=== PATIENT | male | born 1960 | race Caucasian/White ===

== ENCOUNTER 2017-05-10 13:12 | Inpatient (IN) | payer MEDICAID ==
[~2017-05-10] VITALS: Ht 177.8 cm; Wt 104.3 kg
[~2017-05-10 13:12] MED LIST: HYDROCHLOROTHIA25 MG GT; MAXALT10 MG PO; NORVASC5 MG PO; PRAVACHOL40 MG PO; ZANTAC150 MG PO; ZIAC; ZIAC 10-6.25 MG1 TAB; ZIAC 2.5/6.25 M1 TAB
[2017-05-10 14:35] LABS: BASOPHILS 0.4 % (0-2); EOSINOPHILS 0.6 % (0-7); HEMATOCRIT 52.5 % (42.0-54.0); HEMOGLOBIN 17.7 g/dL (13.5-17.5); IMMATURE GRANULOCYTES 0.2 % (0-5); LYMPHOCYTES 13.8 % (15-50); MCH 34.1 pg (26.0-34.0); MCHC 33.7 g/dL (31.0-37.0); MCV 101.2 fL (80.0-100.0); MEAN PLATELET VOLUME 9.5 fL (7.4-10.4); MONOCYTES 5.5 % (2-11); NEUTROPHILS 79.5 % (40-80); PLATELET COUNT 236 10x3/uL (130-400); RBC 5.19 10x6/uL (4.20-6.10); RDW 13.8 % (11.5-14.5); WBC 10.7 10x3/uL (4.8-10.8)
[2017-05-10 14:51] LABS: ALBUMIN 3.9 g/dL (3.4-5.0); ANION GAP 13.7 mmol/L (8-16); BILIRUBIN - TOTAL 0.86 mg/dL (0.2-1.3); CALCIUM 10.1 mg/dL (8.5-10.1); CARBON DIOXIDE 28.6 mmol/L (21.0-32.0); CREATININE - SERUM 1.1 mg/dL (0.6-1.3); POTASSIUM - SERUM 5.3 mmol/L (3.5-5.1); PROTEIN - SERUM 7.7 g/dL (6.4-8.2)
--- NOTE | 2017-05-10 18:27 | NUR ---
1800 PT RECIEVED FROM THE ER VIA BED ORALLY INTUBTATED
[2017-05-10] MEDS ORDERED: ULTRAM50 MG PO (18:31)
--- NOTE | 2017-05-10 18:31 | NUR ---
181 DR CARLOS IN WITH PT.. MRI HERE TO TRANSPORT PT.. DR CARLOS TALKING WITH DR VAUGHAN ON THE PHONE RE MRI.. MRI HELD AT THIS TIME AFTER THEIR CONVERSATION.. 1829 MOTHER AT BEDSIDE AND DR CARLOS IS TALKING WITH HER..
[2017-05-10 19:00] VITALS: BP 128/74
--- NOTE | 2017-05-10 19:30 | NUR ---
REPORT RECIEVED. ASSESSMENT COMPLETED. PT SEDATED ON VENT.POSITIONED FOR COMFORT. BED IN LOW POSITION.
--- NOTE | 2017-05-10 19:45 | NUR ---
DR. VAUGHAN CALLED T ORDER FOR PROPOFOL TO BE STOPPED WILL ADM NO FURTHER NO ORDERS AT THIS TIME.
[2017-05-10 20:00] VITALS: BP 128/74
[2017-05-10 20:02] VITALS: BP 127/71; BMI 33.0
--- NOTE | 2017-05-10 20:15 | NUR ---
DR. VAUGHAN AT BED SIDE TO ASSESS PT. AFTER ASSESSMENT COMPLETED ORDERED THE PROPOFOL TO BED CONTINUED.
[2017-05-10 21:00] VITALS: BP 104/63
--- NOTE | 2017-05-10 21:00 | NUR ---
PT FAMILY AT BED SIDE UPDATE GIVE TO BOTH OF HIS BROTHERS. PT SEDATED ON VENT ORAL CARE GIVEN POSITIONED FOR COMFORT.
[2017-05-10 21:44] LABS: CKMB 2.6 U/L (0.0-3.6); CREATINE KINASE 204 UL (21-232); T4 THYROXIN - FREE 0.99 ng/dL (0.76-1.46); THYROID STIMULATING HORMONE 1.18 uIU/mL (0.36-3.74); TROPONIN-I 0.047 ng/mL (0.000-0.060)
[2017-05-10 22:00] VITALS: BP 125/74
[2017-05-10 23:00] VITALS: BP 129/71
--- NOTE | 2017-05-10 23:00 | NUR ---
REASSESSMENT COMPLETED. PT SEDATED ON VENT ORAL CARE GIVEN. POSITIONED FOR COMFORT.
[2017-05-11] VITALS (23 sets, daily range): BP systolic 98–159; BP diastolic 57–96; Ht 177.8 cm; Wt 104.3 kg
--- NOTE | 2017-05-11 01:00 | NUR ---
PT SEDATE ON VENT ORAL CARE GIVEN. POSITIONED FOR COMFORT. WILL CONTINUE TO MONITOR.
--- NOTE | 2017-05-11 03:00 | NUR ---
REASSESSMENT COMPLETED. PT SEDATED ON THE VENT WILL CONTINUE TO MONITOR.
[2017-05-11 04:44] LABS: APPEARANCE HAZY (CLEAR); BILIRUBIN NEGATIVE (NEGATIVE); COLOR YELLOW (YELLOW); GLUCOSE NEGATIVE (NEGATIVE); KETONE NEGATIVE (NEGATIVE); LEUKOCYTE ESTERASE 1+ (NEGATIVE); NITRITE NEGATIVE (NEGATIVE); PROTEIN 1+ mg/dL (NEGATIVE); SPECIFIC GRAVITY 1.015 (1.005-1.020); UROBILINOGEN NORMAL (NORMAL)
[2017-05-11 04:45] LABS: BACTERIA FEW /hpf (NONE SEEN); EPITHELIAL CELLS 0-5 /hpf (0-5); WHITE CELLS - URINE 0-5 /hpf (0-5)
--- NOTE | 2017-05-11 05:00 | NUR ---
PT SEDDATED ON VENT ORAL CARE DONE. POSITIONED FOR COMFORT WILL CONTINUE TO MONITOR.
--- NOTE | 2017-05-11 05:05 | NUR ---
REASSESSMENT COMPLETED. PT SEDATED ON VENT RESTING COMFORTABLY. WILL CONTINUE TO MONITOR.
[2017-05-11 05:06] LABS: BASOPHILS 0.1 % (0-2); EOSINOPHILS 0.4 % (0-7); HEMATOCRIT 47.8 % (42.0-54.0); HEMOGLOBIN 16.3 g/dL (13.5-17.5); IMMATURE GRANULOCYTES 0.2 % (0-5); LYMPHOCYTES 14.3 % (15-50); MCH 33.9 pg (26.0-34.0); MCHC 34.1 g/dL (31.0-37.0); MCV 99.4 fL (80.0-100.0); MEAN PLATELET VOLUME 10.2 fL (7.4-10.4); MONOCYTES 8.7 % (2-11); NEUTROPHILS 76.3 % (40-80); PLATELET COUNT 260 10x3/uL (130-400); RBC 4.81 10x6/uL (4.20-6.10); RDW 13.8 % (11.5-14.5); WBC 11.1 10x3/uL (4.8-10.8)
[2017-05-11 05:31] LABS: ALBUMIN 3.3 g/dL (3.4-5.0); ALKALINE PHOSPHATASE 45 U/L (46-116); ALT (SGPT) 39 U/L (10-68); CALC OSMOLALITY 280 mosm/kg (275-300); CALCIUM 9.1 mg/dL (8.5-10.1); CARBON DIOXIDE 24.4 mmol/L (21.0-32.0); CHLORIDE - SERUM 104 mmol/L (98-107); GLUCOSE 110 mg/dL (74-106); MAGNESIUM - SERUM 1.5 mg/dL (1.8-2.4); PHOSPHOROUS 2.4 mg/dL (2.5-4.9); SODIUM 140 mmol/L (136-145); TROPONIN-I 0.053 ng/mL (0.000-0.060); UREA NITROGEN 14 mg/dL (7-18); eGFR NON AFRICAN AMERICAN 82 mL/min (90-120)
[2017-05-11 05:32] LABS: POTASSIUM - SERUM 3.6 mmol/L (3.5-5.1)
--- NOTE | 2017-05-11 07:00 | NUR ---
SHIFT ASSESSMENT COMPLETED, PT SEDATED ON VENT, UYB104% RATE OF 12, PROPOFOL 70MCG VIA PIV TO LEFT FORARM, TUBING CHANGED, CATHETER DRAINING CLEAR YELLOW URINE, VSS, REPOSITIONED, NO SIGNS OF PAIN WILL CONTINUE TO MONITOR
--- NOTE | 2017-05-11 09:00 | NUR ---
PT CONTINUES SEDATED ON VENT, VSS, REPOSITIONED, ORAL CARE AND SUCTIONING PROVIDED, LINEN CHANGED, WILL CONTINUE TO MONITOR
--- NOTE | 2017-05-11 11:00 | NUR ---
PT MAURICE NUES SEDATED ON VENT, ATTEMPTING TO WEAN PER DR ANDERSON, VSS, NO AGITATION NOTED AT THIS TIME, REPOSITIONED, SUCTIONING PROVIDED, BATH AND LINEN CHANGE PROVIDED, WILL CONTIUE TO MONITOR
--- NOTE | 2017-05-11 11:48 | NUR ---
PT EXTUBATED, VSS, O2 4L NC, ALERT, WILL CONTINUE TO MONITOR
--- NOTE | 2017-05-11 13:00 | NUR ---
PT ALERT, RESPIRATIONS EVEN AND UNLABORED, CONTIUES ON O2 VIA NC, NONPRODUCTIVE COUGH NOTED, DR VAUGHAN AWARE OF EXTUBATION, MRI AND TORADOL ORDERED FOR HEADACHE, VSS, WILL CONTINUE TO MONITOR
--- NOTE | 2017-05-11 15:00 | NUR ---
PT ALERT, ABLE TO VERBALIZE NEEDS, NO NEEDS NOTED VSS WILL CONTINUE TO MONITOR
--- NOTE | 2017-05-11 17:00 | NUR ---
PT ALERT, DENIES PAIN, MRI COMPLETE, REPOSITIONED IN BED, NO NEEDS NOTED WILL CONTINUE TO MONITOR
--- NOTE | 2017-05-11 19:30 | NUR ---
REPORT RECEIVED. ASSESSMENT COMPLETED. PT AWAKE AND ORIENTATED. WILL CONTINUE TO MONITOR.
--- NOTE | 2017-05-11 21:00 | NUR ---
FAMILY AT BED SIDE WITH PT. WILL CONTINUE TO MONITOR.
--- NOTE | 2017-05-11 23:00 | NUR ---
REASSESSMENT COMPLETED. PT POSITIONED F0R COMFORT AND BACK TO SLEEP.
[2017-05-12] VITALS (10 sets, daily range): BP systolic 150–162; BP diastolic 85–100
--- NOTE | 2017-05-12 01:00 | NUR ---
PT SLEEPING WITH EYES SHUT WILL CONTINUE TO MONITOR.
--- NOTE | 2017-05-12 03:00 | NUR ---
REASSESSMENT COMPLETED. PT STATED"HE WAS GOING BACK TO SLEEP." WILL CONTINUE TO MONITOR.
[2017-05-12 04:26] LABS: BASOPHILS 0.1 % (0-2); EOSINOPHILS 0.9 % (0-7); HEMATOCRIT 46.9 % (42.0-54.0); HEMOGLOBIN 15.6 g/dL (13.5-17.5); LYMPHOCYTES 19.6 % (15-50); MCH 33.9 pg (26.0-34.0); MCHC 33.3 g/dL (31.0-37.0); MEAN PLATELET VOLUME 10.3 fL (7.4-10.4); MONOCYTES 10.2 % (2-11); NEUTROPHILS 69.2 % (40-80); PLATELET COUNT 246 10x3/uL (130-400); RDW 14.6 % (11.5-14.5); WBC 8.7 10x3/uL (4.8-10.8)
[2017-05-12 04:41] LABS: CALC OSMOLALITY 285 mosm/kg (275-300); CALCIUM 9.5 mg/dL (8.5-10.1); CARBON DIOXIDE 26.1 mmol/L (21.0-32.0); CHLORIDE - SERUM 108 mmol/L (98-107); GLUCOSE 94 mg/dL (74-106); MAGNESIUM - SERUM 1.8 mg/dL (1.8-2.4); PHOSPHOROUS 2.9 mg/dL (2.5-4.9); POTASSIUM - SERUM 3.6 mmol/L (3.5-5.1); SODIUM 143 mmol/L (136-145); UREA NITROGEN 14 mg/dL (7-18); eGFR NON AFRICAN AMERICAN 82 mL/min (90-120)
--- NOTE | 2017-05-12 05:00 | NUR ---
PT SLEEPING WITH EYES SHUT.VSS. WILL CONTINUE TO MONITOR.
--- NOTE | 2017-05-12 07:00 | NUR ---
PT ALERT AND OREINTED, RESPRIATIONS EVEN AND UNLABORED, DENIES PAIN, REPOSITIONS SELF, USES INCENTIVE SPIROMETER WITH ENCOURAGEMENT, PIV TO LEFT UPPER ARM WITH NS INFUSING, VSS,WILL CONTINUE TO MONITOR
[2017-05-12] MEDS ORDERED: MAG-OX 400 MG400 MG PO (08:28)
[2017-05-12] MEDS ORDERED: BUTALB-APAP-CA1 EACH PO (08:30)
[2017-05-12] MEDS ORDERED: TOPAMAX25 MG PO (08:30)
--- NOTE | 2017-05-12 09:00 | NUR ---
PT ALERT, RESPIRAITONS EVEN AND UNLABORED, DENIES SOB, CATHETER REMOVED, AWAITING VOID, DENIES PAIN AND ALL NEEDS WILL CONTINUE TO MONITOR
--- NOTE | 2017-05-12 09:14 | NUR ---
* Is the patient Alert and Oriented? Yes 0 * How many steps to enter\exit or inside your home? 0 0 * PCP Dr. Wilkins 0 * Pharmacy [place] 0 * Preadmission Environment Home with Family 0 * ADLs Independent 0 * List name and contact numbers for known caregivers / representatives who currently or will assist patient after discharge: Brother Holly Golden [phone] Brother - Ulisses [phone] Girlfriend - Basilia [phone] 0 * Additional services required to return to the preadmission environment? No 0 * Can the patient safely return to the preadmission environment? Yes 0 * Has this patient been hospitalized within the prior 30 days at any hospital? No 05/12/2017 9:15 DCP: Discharge Planning Patient Name: JANEL COSME Admission Status: ER Accout number: [id number] Admission Date: 05-10-2017 : 1960 Admission Diagnosis:APNEA, NOT ELSEWHERE CLASSIFIED Attending: DERICK Current LOS: 2 Anticipated DC Date: 05-12-2017 Planned Disposition: Home Primary Insurance: [facility] [employer] [facility] Discharge Planning Comments: CM met with patient to assess DC plans/needs. Patient states he lives with his mother. 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 At discharge, he will return home. No needs identified or verbalized at this time. Anticipate DC this afternoon. CM will follow. Frame Pulley Mortising Machine Operator: Karrie Mane
--- NOTE | 2017-05-12 09:24 | NUR ---
DISCHARGE PRESCRIPTIONS CALLED TO [facility] SPOKE WITH CARLOS
--- NOTE | 2017-05-12 10:15 | NUR ---
PT DISCHARGED HOME, ACCOMPANIED BY FRIEND PAWAN, ALERT AND ORIENTED, RESPIRATIONS EVEN AND UNLABORED, PIV REMOVED, URINATING WITHOUT DIFFICULTY, DENIES ALL NEEDS, DISCUSSED NEW MEDICATIONS AND THAT THEY WERE CALLED IN TO PHARMACY, NO NEEDS NOTED
--- NOTE | 2017-05-13 21:50 | DS ---
PATIENT:JANEL COSME :[birth year] MEDICAL RECORD: [id number] DISCHARGE SUMMARY ADMISSION DATE: 05/10/17 DISCHARGE DATE: 05/12/17 DISCHARGE DIAGNOSES: Global encephalopathy, severe classic migraine, respiratory failure, bradycardia, and hypertension. HOSPITAL COURSE: A 56-year-old male with history of migraine, had a migraine with severe onset on the morning of admission. He said it did not improve with 3 Excedrin and he took a Maxalt, felt some chest tightness and shortness of breath. His mother said his color in his face changed and she became concerned he has had crescendo, and family called 911. In the Emergency Room, he was attended by Dr. Lind who stated the patient had episodes of apnea. He would wait 30 minutes and stimulate him to make him breathe. He became bradycardic as a result of this. He required intubation in the ED. He ultimately required ICU placement on the ventilator with Diprivan because of his agitation. He was seen in consultation by Dr. Field. Initially felt the patient might have had respiratory depression due to analgesics given in the ED. The patient remained on the ventilator. He was managed by Dr. Ybarra. He was extubated yesterday afternoon stating his headache had resolved. His chest x-ray only showed atelectasis. Overall, he is feeling much better, desires discharge today. MRI of the brain was performed showing a tiny mucous retention cyst in the left maxillary sinus, otherwise unremarkable, no evidence of ischemia or hemorrhage. CT of the brain in ED showed no intracranial abnormalities. Lab results show white count of 8000, H&H of 15 and 46.9 respectively. Potassium was 3.6. Glucose was 82. Ammonia was elevated at 40 initially. Urinalysis drug screen was negative. Urine showed 10-25 red cells after Mirza was placed. INR was 1.04. ABG: pH 7.48, pCO2 of 39, pO2 of 104 on 40%. The patient has been asymptomatic since yesterday and has been extubated since yesterday without respiratory symptoms. His O2 sats were 96%, blood pressure 157/95, heart rate of 69 and regular. He will be discharged today in improved condition to follow up in my office in 1 week. DISCHARGE MEDICATIONS: Magnesium oxide 400 mg daily for migraine prophylaxis, Topamax 25 mg p.o. b.i.d., Fioricet 50/325/40 one q.4-6 hours for severe migraine, pravastatin 40 mg with evening meal, Zantac 150 mg p.o. at h.s., Ziac 2.5/6.25 one p.o. q.a.m., Norvasc 5 mg daily, HCTZ 25 mg p.o. q.a.m. He will discontinue Maxalt and tramadol at this time. DIET: Low cholesterol as tolerated. FOLLOWUP: Return to clinic to see me in 1 week. We will schedule for an outpatient sleep study at that time. TRANSINT:[id number] Voice Confirmation ID: [id number] DOCUMENT ID: [id number] JEROD CARLOS MD at 2150 CC: [id number] DICTATION DATE: 05/12/17 0836 MUD MILL TENDER: 05/12/17 2327 DIS IN 05/12/17 [facility] [address] [place] [address]
--- NOTE | 2017-05-13 21:50 | HP ---
PATIENT: JANEL COSME MEDICAL RECORD: [id number] ACCOUNT: [id number] LOCATION:[id number] : [birth year] ADMISSION DATE: 05/10/17 HISTORY AND PHYSICAL EXAMINATION REASON FOR ADMISSION: Severe headache and altered mental status. HISTORY OF PRESENT ILLNESS: The patient is a 56-year-old male with history of essential hypertension and migraine headaches. His mother states that he has a migraine once or twice a week, usually responsive to Excedrin Migraine. He felt the headache earlier this morning and did not respond to Excedrin, became severe and he told that his headache was really hurting. He then took a Maxalt 10 mg which she states he had never taken before. Within 2 minutes, he complained of some tightness in his chest and some shortness of breath. Because of his complaints of chest pain, her other son called 911. EMS arrived and brought the patient into the ED, where he was evaluated by Dr. Lind. Dr. Lind stated the patient would become apneic and then bradycardic and did not respond well to stimulation. Ultimately, he was intubated and placed on IV propofol. Prior to that, he had been thrashing about and difficult to control. There was no recent episode of fever. His mother said he felt well prior to onset of headache this morning. She denies any recent tick bites. PAST MEDICAL HISTORY: Essential hypertension, fatty liver, obesity, history of gout, history of kidney stones, was hospitalized in 2009 for a suprapubic abscess which required I&D, dyslipidemia, hospitalized in March 1998 for febrile illness and hematuria with negative diagnosis. History of gastroesophageal reflux disease, allergic rhinitis, calcium oxalate kidney stones, osteoarthritis, male hypogonadism. SOCIAL HISTORY: He had had surgical I&D in 2009 for suprapubic abscess. FAMILY HISTORY: Father at age 78 had renal cell carcinoma and CAD. Mother with history of kidney stones, hypertension. Brother with hypertension. ALLERGIES: TRICOR. SOCIAL HISTORY: Nonsmoker, occasional beer drinker. HOME MEDICATIONS: Testosterone 200 mg IM q.3 weeks, Zantac 150 mg at h.s., Norvasc 5 mg a day, Maxalt 10 mg for migraine, Flonase nasal spray 1 spray each nostril daily, diclofenac 50 mg b.i.d. p.r.n. gout symptoms, tramadol 50 mg q.6 hours p.r.n. gout symptoms, Ziac 5 mg/6.25 mg p.o. daily, Prilosec OTC 20 mg daily, glipizide 10 mg p.o. b.i.d. REVIEW OF SYSTEMS: GENERAL: Has no recent fever or weight change and good appetite up until this episode. RESPIRATORY: Complained of shortness of breath after taking Maxalt, none prior to. No cough or sputum production. CARDIAC: Chest pain after taking Maxalt. No recent exertional chest pain or palpitations. GASTROINTESTINAL: No nausea, vomiting, change in stools or blood per rectum. GENITOURINARY: Has nocturia once nightly. No dysuria or recent hematuria. ENDOCRINE: No polyuria, polydipsia, heat or cold intolerance. NEUROLOGIC: History of encephalopathy with hypertensive crisis in 2014. HISTORY AND PHYSICAL [id number] JANEL COSME Negative CT at that time, no history of seizures or head injury. PSYCHIATRIC: Denies depressed mood. MUSCULOSKELETAL: Has arthralgias in his low back, lumbar spine and his toes. PHYSICAL EXAMINATION: VITAL SIGNS: The patient is currently on IV sedation and ventilated. His blood pressure is 130/80 with a heart rate 90 and regular at this time. Respirations were 20 prior to intubation. Weight is 180 pounds, height of 5 feet 6 inches. GENERAL: The patient was sedated, in no acute distress. HEENT: Normocephalic. Eyes are clear. Pupils are round and sluggish. Oropharynx intubated. NECK: Supple. CHEST: Clear. HEART: Regular rate and rhythm. ABDOMEN: Obese, soft, nontender. EXTREMITIES: No CC&E. NEUROLOGICAL: He is sedated without localizing neurologic signs. Prior to intubation and sedation, motor was definitely intact according to Dr. Lind. INTEGUMENT: No rash appreciated. LABORATORY DATA: pH 7.39, pCO2 of 40, pO2 is 100 after intubation. H&H was 18 and 53, potassium of 3.8, glucose 129. White count 10.7 thousand, H&H of 17 and 52 respectively. MCV of 101 and platelet count 236,000 with normal diff. BUN and creatinine are 16 and 1.1. Ammonia level is high at 52 with normal liver functions. Chest x-ray, lung parenchyma demonstrates some increase in right basilar airspace disease representing a component of atelectasis, prominence of the pulmonary vasculature, placement of an endotracheal and NG tube positioned as noted. Otherwise, unremarkable. CT of the brain without contrast, no acute intracranial abnormality noted. EKG shows sinus rhythm with T-wave inversions in lead 3. Cardiac enzymes are currently pending. ASSESSMENT: 1. Severe migraine headache. 2. Altered mental status, etiology unknown. 3. Possible cardiac and pulmonary reaction to Maxalt? 4. Hypertension. 5. Obesity. 6. Fatty liver. 7. History of kidney stones. 8. Remote history of hypertensive encephalopathy. 9. Gout. 10. Bradycardia secondary to decreased respiratory drive. PLAN: I talked with Dr. Field. He will examine the patient tonight. Possibly we would proceed with MRI, but he will make final determination on that. I talked to Dr. Zavala as well. He will cycle cardiac enzymes, though at this time, I do not think he has had a cardiac event. I talked with the patient's mother. She has given excellent history. TRANSINT:[id number] Voice Confirmation ID: [id number] DOCUMENT ID: [id number] HISTORY AND PHYSICAL [id number] JANEL COSME TIMOTHY MD at 2150 CC: [id number] DICTATION DATE: 05/10/17 185 ARTILLERY MAINTENANCE SUPERVISOR: 05/11/17 0809 DIS IN 05/12/17 [facility] [address] [place] [address]
== END 2017-05-12 10:15 | disposition home or self-care (01) | DRG 208 ==
LOC: D.ER 13:12 → D.ICU 16:43
PROVIDERS: Emergency Medicine; ADMIT Family Medicine
PROC: 0BH17EZ Insertion of Endotracheal Airway into Trachea, Via Natural or Artificial Opening (ICD-10-PCS; principal; 2017-05-10)
PROC: 5A1935Z Respiratory Ventilation, Less than 24 Consecutive Hours (ICD-10-PCS; 2017-05-10)
PROC: 0T9B70Z Drainage of Bladder with Drainage Device, Via Natural or Artificial Opening (ICD-10-PCS; 2017-05-10)
PROC: 0D9670Z Drainage of Stomach with Drainage Device, Via Natural or Artificial Opening (ICD-10-PCS; 2017-05-10)
DX: J96.00 Acute respiratory failure, unspecified whether with hypoxia or hypercapnia (principal); G93.40 Encephalopathy, unspecified; J98.11 Atelectasis; T40.2X5A Adverse effect of other opioids, initial encounter; G43.109 Migraine with aura, not intractable, without status migrainosus; R00.1 Bradycardia, unspecified; I10 Essential (primary) hypertension; K76.0 Fatty (change of) liver, not elsewhere classified; K21.9 Gastro-esophageal reflux disease without esophagitis; M19.90 Unspecified osteoarthritis, unspecified site; N40.0 Benign prostatic hyperplasia without lower urinary tract symptoms; E66.9 Obesity, unspecified; E78.5 Hyperlipidemia, unspecified; E87.5 Hyperkalemia; J34.1 Cyst and mucocele of nose and nasal sinus

== ENCOUNTER 2019-01-23 10:47 | Outpatient (CLI) | payer MEDICAID ==
[~2019-01-23] VITALS: Ht 175.3 cm; Wt 104.5 kg
[~2019-01-23 10:47] MED LIST changes: +BUTALB-APAP-CA1 EACH PO; +MAG-OX 400 MG400 MG PO; +TOPAMAX25 MG PO; +ULTRAM50 MG PO
[2019-01-23 11:28] VITALS: Ht 175.3 cm; Wt 104.5 kg
--- NOTE | 2019-01-23 13:20 | NUR ---
1245-PHLEBOTOMY OF 500CC COMPLETE 1300-DENIES DIZZINESS, ORAL FLUIDS OFFERRED AND DECLINED 1315-DISCHARGE INSTRUCTIONS REVIEWED. AMBULATES IN ROOM WITHOUT DIZZINESS, SOB. 1320-D/C HOME AMBULATORY WITH FAMILY.
== END 2019-01-23 13:15 | disposition home or self-care (01) ==
LOC: D.OPS 10:47
PROVIDERS: ATTEND Family Medicine
DX: D75.1 Secondary polycythemia (principal)

== ENCOUNTER 2019-10-30 11:06 | Outpatient (CLI) | payer MEDICAID ==
[~2019-10-30] VITALS: Ht 175.3 cm; Wt 90.9 kg
[2019-10-30 11:38] VITALS: Ht 175.3 cm; Wt 90.9 kg
--- NOTE | 2019-10-30 12:57 | NUR ---
PT LEFT UNIT AMBULATING AT 1238
== END 2019-10-30 12:38 | disposition home or self-care (01) ==
LOC: D.OPS 11:06
PROVIDERS: ATTEND Family Medicine
DX: D75.1 Secondary polycythemia (principal)

== ENCOUNTER → 2020-01-17 12:21 | Outpatient (CLI) | payer MEDICAID ==
[2019-10-30 11:38] VITALS: BMI 29.6
== END | disposition home or self-care (01) ==
LOC: D.CT 12:21
PROVIDERS: ATTEND Family Medicine
DX: R06.00 Dyspnea, unspecified (principal)